=== PATIENT | female | born 1985 | race Caucasian/White ===

== ENCOUNTER 2018-01-06 15:53 | Emergency (ER) | payer OTHER ==
[2018-01-06] MEDS ORDERED: KETOROLAC TROMETHAMINE 60 MG/2 ML SDV IM ONE (18:57)
[2018-01-06] MEDS ORDERED: OXYCODONE-ACETAMINOPHEN 5-325 MG TABLET PO ONE (18:57)
[2018-01-06] MEDS ORDERED: LIDOCAINE 5% (700 MG) TRANSDERMAL ADH..PATCH TP ONE (18:57)
[2018-01-06] MEDS ORDERED: CYCLOBENZAPRINE HCL 10 MG TABLET PO ONE (18:57)
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
[2018-01-06 21:01] VITALS: BP 106/61
== END 2018-01-06 20:30 | disposition home or self-care (01) ==
LOC: ER 15:53
DX: M54.9 Dorsalgia, unspecified (principal); F17.200 Nicotine dependence, unspecified, uncomplicated; Z90.710 Acquired absence of both cervix and uterus
CPT/HCPCS: 99283; 96372; J1885